=== PATIENT | female | born 1960 ===

== ENCOUNTER 2023-12-03 09:40 | Outpatient (REF) | payer OTHER, SELFPAY ==
--- NOTE | ~2023-12-03 | US_ITS ---
EXAMINATION: US SOFT TISSUES RIGHT UPPER EXTREMITY CLINICAL INFORMATION: Palpable lump in the mid lateral right upper arm. COMPARISON: None available. TECHNIQUE: Using a linear transducer with grayscale and color modalities, ultrasound examination is performed of the mid right upper arm, with particular attention directed at the palpable finding. FINDINGS: Corresponding with the palpable finding, a 1.2 x 0.6 x 1.3 cm mildly hyperechoic subcutaneous mass is seen. There is a circumscribed, without associated color Doppler flow. There is slight increase in through sound transmission. No sinus tract is seen. The adjacent cutaneous, subcutaneous, muscular and fascial planes are unremarkable. US/US extremity nonvascular IMPRESSION: Corresponding with the palpable finding, a 1.3 cm mildly hyperechoic subcutaneous mass is seen. The possibility of a lipoma is raised; the exact etiology is indeterminate. If of continued clinical concern, this can be further evaluated with MRI.
== END 2023-12-03 09:41 | disposition home or self-care (01) ==
LOC: HO.UMASIMG 09:40
PROVIDERS: Visit Provider Family Medicine
DX: R22.9 Localized swelling, mass and lump, unspecified (principal); I10 Essential (primary) hypertension
CPT/HCPCS: 76882